=== PATIENT | female | born 2005 | race Caucasian/White ===

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

== ENCOUNTER 2024-03-12 09:27 | Day surgery (SDC) | payer BC ==
[~2024-03-12] VITALS: Ht 175.3 cm; Wt 99.1 kg
[~2024-03-12 09:27] MED LIST: LR 1,000 ML IV SCH; Ondansetron 4 MG/2 ML VIAL IV PRN
[2024-03-12] MEDS ORDERED: ATARAX50 MG PO (10:18)
[2024-03-12] MEDS ORDERED: EXCEDRIN1 TAB PO (10:18)
[2024-03-12] MEDS ORDERED: LAMICTAL 100MG100 MG PO (10:19)
[2024-03-12] MEDS ORDERED: TIROSINT25 MC1 PO (10:19)
[2024-03-12] MEDS ORDERED: PROTONIX 40MG T40 MG PO (10:20)
[2024-03-12 10:34] VITALS: BP 128/76; PULSE 71; TEMP 98.1
[2024-03-12 11:55] VITALS: BP 133/49; PULSE 88; TEMP 97
--- NOTE | 2024-03-12 11:55 | NUR ---
PATIENT AMBULATED TO CHAIR WITH STEADY GAIT, ASSIST OF 2. ALERT AND AWAKE. DENIES PAIN, NAUSEA AND SHORTNESS OF BREATH. BREATHING REGULAR AND UNLABORED ON ROOM AIR. SKIN WARM AND DRY. IV IN PLACE. NURSE HANDOFF COMPLETED IN ROOM. SEE CHART FOR VITAL SIGNS. PATIENT HAD ORANGE JUICE AND A MUFFIN. BOTH FOOD AND DRINK TOLERATED WELL. PATIENT IS SMILING AND RESTING IN CHAIR, CALL LIGHT IN REACH. PARENTS PRESENT IN ROOM.
[2024-03-12 12:00] VITALS: BP 107/64; PULSE 82
[2024-03-12 12:10] VITALS: BP 114/74; PULSE 71
[2024-03-12 12:17] VITALS: BP 118/77; PULSE 79
--- NOTE | 2024-03-12 12:30 | NUR ---
1210: MET WITH PATIENT AND PARENTS IN ROOM TO DISCUSS PROCEDURE. 1221: DISCHARGE TEACHING COMPLETED WITH PRINTED EDUCATION AND INSTRUCTIONS SENT HOME WITH PATIENT. PATIENT VERBALIZED UNDERSTANDING OF TEACHING. 1224: IV REMOVED. GAUZE AND COBAN PLACED OVER SITE. 1230: PATIENT DISCHARGED HOME WITH [facility].
== END 2024-03-12 12:30 | disposition home or self-care (01) ==
LOC: SDCO 09:27
PROVIDERS: Internal Medicine Gastroenterology
DX: K21.00 Gastro-esophageal reflux disease with esophagitis, without bleeding (principal); R10.32 Left lower quadrant pain; R19.7 Diarrhea, unspecified; R11.2 Nausea with vomiting, unspecified; K62.89 Other specified diseases of anus and rectum; K64.4 Residual hemorrhoidal skin tags; Z85.850 Personal history of malignant neoplasm of thyroid; K92.1 Melena; R15.2 Fecal urgency
CPT/HCPCS: J2704; J7120